=== PATIENT | male | born 1970 | race Hispanic/Latino ===

== ENCOUNTER 2016-12-18 11:33 | Inpatient (IN) | payer BC ==
[2016-12-18 11:49] LABS: GFR AFRICAN-AMERICAN > 60; INR 1.5
[2016-12-18] MEDS ORDERED: Phenytoin 100 mg/4 ml Oral Susp UD PO SCH (12:00)
== END 2016-12-18 12:05 | disposition home or self-care (01) | DRG 951 ==
LOC: C.5T 11:33
PROVIDERS: ADMIT Internal Medicine; ATTEND Internal Medicine
DX: Z02.89 Encounter for other administrative examinations (principal)